=== PATIENT | male | born 1985 | race African-American/Black ===

== ENCOUNTER 2020-05-25 18:33 | Emergency (ER) | payer SELFPAY ==
[~2020-05-25] VITALS: Ht 180.3 cm; Wt 100.0 kg
[2020-05-25] MEDS ORDERED: KETOROLAC 30MG/ML VIAL IM ONE (20:00)
[2020-05-25 21:10] VITALS: BP 125/82
== END 2020-05-25 21:05 | disposition home or self-care (01) ==
LOC: ER 18:58
DX: S16.1XXA Strain of muscle, fascia and tendon at neck level, initial encounter (principal); M25.512 Pain in left shoulder; M25.511 Pain in right shoulder; V49.49XA Driver injured in collision with other motor vehicles in traffic accident, initial encounter; Y93.89 Activity, other specified; Y92.488 Other paved roadways as the place of occurrence of the external cause; E78.00 Pure hypercholesterolemia, unspecified
CPT/HCPCS: 72040; 96372; 99283; J1885